=== PATIENT | male | born 1995 | race Caucasian/White ===

== ENCOUNTER 2017-09-30 15:42 | Emergency (ER) | payer OTHER ==
[~2017-09-30] VITALS: Ht 175.3 cm; Wt 102.0 kg
[2017-09-30] MEDS ORDERED: NORCO 5/3251 TABLET PO (21:19)
[2017-09-30 21:44] VITALS: BP 120/83
== END 2017-09-30 21:44 | disposition home or self-care (01) ==
LOC: EME 15:42
PROC: 0RSKXZZ Reposition Left Shoulder Joint, External Approach (ICD-10-PCS; principal; 2017-09-30)
DX: S43.005A Unspecified dislocation of left shoulder joint, initial encounter (principal); V00.311A Fall from snowboard, initial encounter; Y93.23 Activity, snow (alpine) (downhill) skiing, snowboarding, sledding, tobogganing and snow tubing; F17.200 Nicotine dependence, unspecified, uncomplicated
CPT/HCPCS: 73030; 99281; 99285; J1885; J2060; J3010